=== PATIENT | male | born 1960 | race Caucasian/White ===

== ENCOUNTER 2024-03-01 06:33 | Inpatient (IN) ==
[~2024-03-01 06:33] MED LIST: SUPRANE ONE
[2024-03-01] MEDS: LR 1,000 ML IV 1,000 ML IV ONE (06:46)
[2024-03-01] MEDS: NOZIN NASAL SANITIZER TP ONE (06:58)
[2024-03-01] MEDS: DUONEB 0.5 MG/3 MG (3 mL) NEB ONE (07:07)
--- NOTE | 2024-03-01 07:09 | EKG ---
Test Reason : pre op surgery Blood Pressure : */* mmHG Vent. Rate : 66 BPM Atrial Rate : 66 BPM P-R Int : 200 ms QRS Dur : 120 ms QT Int : 414 ms P-R-T Axes : 70 1 67 degrees QTc Int : 434 ms Normal sinus rhythm Indeterminate axis Low voltage QRS Right bundle branch block Abnormal ECG No previous ECGs available Confirmed by Jacques Cat MD ([id number]) on 03/01/2024 7:26:28 AM Referred By: Confirmed By: Jacques Cat MD
[2024-03-01 07:30] VITALS: BMI 21.4
[2024-03-01] MEDS: NS 500 ML IV 500 ML IV ONE (07:45)
[2024-03-01 07:48] LABS: ALANINE AMINOTRANSFERASE 29 Units/L (12-78); ALBUMIN 3.7 g/dL (3.4-5.0); ALKALINE PHOSPHATASE 92 Units/L (46-116); ASPARTATE AMINO TRANSFERASE 59 Units/L (15-37); BLOOD UREA NITROGEN 9 mg/dL (7-18); CALCIUM 9.3 mg/dL (8.5-10.1); CARBON DIOXIDE 28.7 mmol/L (21-32); CHLORIDE 90 mmol/L (98-107); CREATININE 0.95 mg/dL (0.70-1.30); GLUCOSE 89 mg/dL (65-99); POTASSIUM 4.4 mmol/L (3.5-5.1); SODIUM 128 mmol/L (136-145); TOTAL PROTEIN 7.7 g/dL (6.4-8.2); eGFR NON BLACK RACES > 60 (>60)
--- NOTE | 2024-03-01 07:48 | RAD ---
EXAM: Portable chest HISTORY: Preop abdominal aortic aneurysm repair COMPARISON: None FINDINGS: Heart size is normal. Renetta are normal. Aorta is calcified. Lungs are well inflated and free of a cute alveolar infiltrates. There are likely some emphysematous changes present in the upper lobes. No pleural effusions are identified. Bony thorax is unremarkable. IMPRESSION: No acute infiltrates Emphysematous changes in the upper lobes bilaterally THIS IS AN ELECTRONICALLY VERIFIED FINAL REPORT 03/01/2024 7:44 AM - Electronically signed by Topher Weaver MD
[2024-03-01 07:52] LABS: BASOPHILS # (AUTO) 0.1 X10^3/uL (0.0-0.1); BASOPHILS % (AUTO) 1.1 % (0.2-1.0); EOSINOPHILS # (AUTO) 0.1 x10^3/uL (0.0-0.2); EOSINOPHILS % (AUTO) 1.9 % (0.9-2.9); HEMATOCRIT 40.6 % (42.0-54.0); HEMOGLOBIN 14.2 g/dL (13.5-18.0); LYMPHOCYTES # (AUTO) 1.2 X10^3/uL (1.3-2.9); LYMPHOCYTES % (AUTO) 19.2 % (21.0-51.0); MEAN CORPUSCULAR HEMOGLOBIN 36.2 pg (27.0-34.0); MEAN CORPUSCULAR VOLUME 103.6 fL (80.0-100.0); MEAN PLATELET VOLUME 8.8 fL (7.4-11.0); MONOCYTES # (AUTO) 0.4 x10^3/uL (0.3-0.8); NEUTROPHILS # (AUTO) 4.3 x10^3/uL (2.2-4.8); NEUTROPHILS % (AUTO) 70.8 % (42.0-75.0); PLATELET COUNT 147 X10^3/uL (150.0-450.0); RED BLOOD COUNT 3.92 X10^6/uL (4.7-6.0); RED CELL DISTRIBUTION WIDTH 14.2 % (11.6-16.5)
[2024-03-01] MEDS: FENTANYL VIAL INJ 100 mcg ONE ×2 (08:02→09:57)
[2024-03-01] MEDS: ZEMURON 100 MG VIAL ONE (08:02)
[2024-03-01] MEDS: DIPRIVAN VIAL 20 ML ONE (08:02)
[2024-03-01] MEDS: NS 1,000 ML IV 1,000 ML ONE (08:02)
[2024-03-01] MEDS: PRECEDEX INJ VIAL ONE (08:02)
[2024-03-01] MEDS: NS 100 ML IV 100 ML ONE (08:02)
[2024-03-01] MEDS: VERSED ONE (08:02)
[2024-03-01] MEDS: QUELICIN (OR ANECTINE) ONE (08:02)
[2024-03-01] MEDS: ANCEF VIAL 1 GRAM ONE (08:02)
[2024-03-01] MEDS: KETAMINE HCL ONE (08:04)
[2024-03-01] MEDS: NEO-SYNEPHRINE INJ ONE (08:20)
[2024-03-01] MEDS: MARCAINE 0.5% ONE (08:29)
[2024-03-01] MEDS: VISIPAQUE 100 ML ONE (08:29)
[2024-03-01] MEDS: HEPARIN SODIUM IN D5W 75,000 UNITS/1,500 ML BAG ONE (08:29)
[2024-03-01] MEDS: HEPARIN SODIUM INJ 5000 UNITS ONE (08:58)
[2024-03-01] MEDS: PROTAMINE SULFATE 50 MG VIAL ONE (09:54)
[2024-03-01] MEDS: BRIDION ONE (10:00)
[2024-03-01] MEDS ORDERED: REGLAN INJ 10 MG VIAL IVP PRN (10:27)
[2024-03-01] MEDS ORDERED: BENADRYL INJ 50 MG VIAL IVP PRN (10:27)
[2024-03-01] MEDS ORDERED: DILAUDID INJ IVP PRN ×2 (10:27→14:10)
[2024-03-01] MEDS ORDERED: ZOFRAN INJ 4 MG VIAL IVP PRN (10:27)
[2024-03-01] MEDS ORDERED: BARHEMSYS INJ IVP PRN (10:27)
--- NOTE | 2024-03-01 10:29 | OR.IMMED ---
IMMEDIATE POST-OP NOTE Immediate Post-Op Note Date of surgery/procedure: 03/01/24 Pre-Op Diagnosis: 5.8 cm infrarenal abdominal aortic aneurysm and bilateral iliac artery aneurysms Post-Op Diagnosis: same Procedure: into vascular aortic aneurysm repair and repair bilateral iliac artery aneurysms Description of Procedure: see dictation Surgeon/Cad Specialist: Mario Findings: as above Estimated Blood Loss: 100 cc Complications: none Progress Notes: to PACU then CCU
[2024-03-01] MEDS: NICOTINE PATCH TD SCH (13:00)
[2024-03-01] MEDS: FLOMAX PO SCH (13:30)
[2024-03-01] MEDS: PERCOCET TAB 5/325 MG PO PRN (13:33)
[2024-03-01] MEDS: LR 1,000 ML IV 1,000 ML IV SCH (13:43)
[2024-03-01] MEDS: ZOFRAN INJ 4 MG VIAL IVP PRN (17:47)
[2024-03-01] MEDS: CHECK PATCH XX SCH (21:07)
[2024-03-01] MEDS: LOPRESSOR TAB 25 MG PO SCH (21:08)
[2024-03-02 04:09] VITALS: TEMP 98.4
[2024-03-02 05:01] LABS: BASOPHILS % (AUTO) 0.3 % (0.2-1.0); EOSINOPHILS % (AUTO) 0.7 % (0.9-2.9); HEMATOCRIT 29.5 % (42.0-54.0); LYMPHOCYTES # (AUTO) 0.5 X10^3/uL (1.3-2.9); MEAN CORPUSCULAR HEMOGLOBIN 36.2 pg (27.0-34.0); MEAN CORPUSCULAR HGB CONC 34.9 g/dL (33.0-35.0); MEAN CORPUSCULAR VOLUME 103.7 fL (80.0-100.0); MEAN PLATELET VOLUME 8.6 fL (7.4-11.0); MONOCYTES # (AUTO) 0.3 x10^3/uL (0.3-0.8); MONOCYTES % (AUTO) 6.6 % (0.0-13.0); NEUTROPHILS # (AUTO) 3.5 x10^3/uL (2.2-4.8); NEUTROPHILS % (AUTO) 80.4 % (42.0-75.0); PLATELET COUNT 74 X10^3/uL (150.0-450.0); RED BLOOD COUNT 2.85 X10^6/uL (4.7-6.0); RED CELL DISTRIBUTION WIDTH 14.4 % (11.6-16.5); WHITE BLOOD COUNT 4.3 X10^3/uL (3.6-10.0)
[2024-03-02 05:02] LABS: BLOOD UREA NITROGEN 9 mg/dL (7-18); CALCIUM 7.9 mg/dL (8.5-10.1); CARBON DIOXIDE 30.8 mmol/L (21-32); CHLORIDE 93 mmol/L (98-107); COR NA(FOR HYPERGLY) 128 mmol/L (136-145); CREATININE 0.73 mg/dL (0.70-1.30); GLUCOSE 111 mg/dL (65-99); SODIUM 128 mmol/L (136-145); eGFR NON BLACK RACES > 60 (>60)
[2024-03-02 05:15] LABS: HEMOGLOBIN 10.3 g/dL (13.5-18.0)
[2024-03-02] MEDS: ASPIRIN EC 81 MG PO SCH (08:46)
[2024-03-02] MEDS: ZESTRIL TAB 20 MG PO SCH (08:46)
[2024-03-02] MEDS: LIPITOR TAB 40 MG PO SCH (08:47)
[2024-03-02] MEDS: ZESTRIL TAB 20 MG ONE (09:14)
--- NOTE | 2024-03-02 11:49 | W.DIS.FURT ---
Summary of Discharge Discharge Summary of Date Date of Exam: 03/02/24 Admission Date Date of Admission: 03/01/24 Admission Diagnosis Hospital Course: 64 year old male with 5.8 cm infrarenal abdominal aortic aneurysm and bilateral common iliac artery aneurysms who had been cleared by Cardiology and underwent elective endovascular aortic aneurysm repair and repair of both iliac arteries yesterday. He has done well. Has palpable distal pulses in both feet. Incision in each groin are stable and clear. He is tolerating a diet. He will be discharged home today on his usual medications and also will be given prescription for Percocet 5 milligram tablets, 1 every 6 hours PRN pain. He will follow with me in 1 week. Vital Signs: Vital Signs (72 hours) 03/01/24 07:34 03/01/24 07:37 03/01/24 10:20 Temperature 97.9 F 97 F L Pulse Rate 67 89 Pulse Rate [Bilateral Radial] Respiratory Rate 18 16 Blood Pressure 140/76 93/60 Blood Pressure [Right Arm] O2 Sat by Pulse Oximetry 97 100 Oxygen Delivery Method Room Air Room Air Aerosol Face Tent Oxygen Flow Rate FIO2% 03/01/24 10:25 03/01/24 10:30 03/01/24 10:35 Temperature Pulse Rate 86 85 80 Pulse Rate [Bilateral Radial] Respiratory Rate 16 18 18 Blood Pressure 99/54 94/54 96/59 Blood Pressure [Right Arm] O2 Sat by Pulse Oximetry 100 95 93 L Oxygen Delivery Method Aerosol Face Tent Room Air Nasal Cannula Oxygen Flow Rate FIO2% 03/01/24 10:40 03/01/24 10:45 03/01/24 10:50 Temperature Pulse Rate 74 71 71 Pulse Rate [Bilateral Radial] Respiratory Rate 18 18 18 Blood Pressure 96/60 96/61 102/63 Blood Pressure [Right Arm] O2 Sat by Pulse Oximetry 94 L 94 L 94 L Oxygen Delivery Method Nasal Cannula Nasal Cannula Nasal Cannula Oxygen Flow Rate FIO2% 03/01/24 11:00 03/01/24 11:15 03/01/24 11:30 Temperature 97.6 F 97.6 F 97.6 F Pulse Rate Pulse Rate [Bilateral Radial] 70 71 71 Respiratory Rate 18 16 16 Blood Pressure Blood Pressure [Right Arm] 121/67 106/58 109/63 O2 Sat by Pulse Oximetry Oxygen Delivery Method Oxygen Flow Rate FIO2% 03/01/24 11:45 03/01/24 12:00 03/01/24 13:33 Temperature 97.6 F 97.4 F L Pulse Rate Pulse Rate [Bilateral Radial] 71 70 Respiratory Rate 21 20 20 Blood Pressure Blood Pressure [Right Arm] 132/75 106/66 O2 Sat by Pulse Oximetry Oxygen Delivery Method Oxygen Flow Rate FIO2% 03/01/24 13:00 03/01/24 14:00 03/01/24 11:00 Temperature 97.4 F L 97.4 F L 97.6 F Pulse Rate Pulse Rate [Bilateral Radial] 76 85 70 Respiratory Rate 24 21 18 Blood Pressure Blood Pressure [Right Arm] 154/72 117/67 121/67 O2 Sat by Pulse Oximetry 95 Oxygen Delivery Method Nasal Cannula Oxygen Flow Rate FIO2% 03/01/24 12:00 03/01/24 13:00 03/01/24 14:00 Temperature 97.6 F 97.4 F L 97.4 F L Pulse Rate Pulse Rate [Bilateral Radial] 69 76 83 Respiratory Rate 20 20 21 Blood Pressure Blood Pressure [Right Arm] 106/66 154/72 117/67 O2 Sat by Pulse Oximetry 97 100 98 Oxygen Delivery Method Nasal Cannula Nasal Cannula Nasal Cannula Oxygen Flow Rate FIO2% 03/01/24 15:00 03/01/24 16:00 03/01/24 15:00 Temperature 98.0 F 98.0 F 98.0 F Pulse Rate 79 Pulse Rate [Bilateral Radial] 79 82 Respiratory Rate 12 15 15 Blood Pressure 140/73 Blood Pressure [Right Arm] 115/63 140/73 O2 Sat by Pulse Oximetry 97 99 99 Oxygen Delivery Method Nasal Cannula Nasal Cannula Oxygen Flow Rate FIO2% 03/01/24 16:00 03/01/24 11:10 03/01/24 11:15 Temperature 98.0 F Pulse Rate 82 72 Pulse Rate [Bilateral Radial] Respiratory Rate 15 16 Blood Pressure 140/73 106/58 Blood Pressure [Right Arm] O2 Sat by Pulse Oximetry 99 95 Oxygen Delivery Method Oxygen Flow Rate FIO2% 03/01/24 11:15 03/01/24 11:30 03/01/24 11:30 Temperature Pulse Rate 71 Pulse Rate [Bilateral Radial] Respiratory Rate 16 Blood Pressure 109/63 109/63 Blood Pressure [Right Arm] O2 Sat by Pulse Oximetry 95 Oxygen Delivery Method Oxygen Flow Rate FIO2% 03/01/24 11:30 03/01/24 11:30 03/01/24 11:45 Temperature Pulse Rate 72 70 Pulse Rate [Bilateral Radial] Respiratory Rate 16 21 Blood Pressure 109/63 Blood Pressure [Right Arm] O2 Sat by Pulse Oximetry 95 97 Oxygen Delivery Method Oxygen Flow Rate FIO2% 03/01/24 11:45 03/01/24 12:00 03/01/24 12:00 Temperature Pulse Rate 69 Pulse Rate [Bilateral Radial] Respiratory Rate 20 Blood Pressure 132/75 106/66 Blood Pressure [Right Arm] O2 Sat by Pulse Oximetry 97 Oxygen Delivery Method Oxygen Flow Rate FIO2% 03/01/24 12:15 03/01/24 12:26 03/01/24 12:26 Temperature Pulse Rate 68 74 Pulse Rate [Bilateral Radial] Respiratory Rate 14 16 Blood Pressure 114/63 Blood Pressure [Right Arm] O2 Sat by Pulse Oximetry 98 99 Oxygen Delivery Method Oxygen Flow Rate FIO2% 03/01/24 12:26 03/01/24 12:30 03/01/24 12:30 Temperature Pulse Rate 68 Pulse Rate [Bilateral Radial] Respiratory Rate 15 Blood Pressure 114/63 126/68 Blood Pressure [Right Arm] O2 Sat by Pulse Oximetry 100 Oxygen Delivery Method Oxygen Flow Rate FIO2% 03/01/24 12:30 03/01/24 12:45 03/01/24 13:00 Temperature Pulse Rate 71 80 Pulse Rate [Bilateral Radial] Respiratory Rate 26 H 31 H Blood Pressure 126/68 Blood Pressure [Right Arm] O2 Sat by Pulse Oximetry 99 100 Oxygen Delivery Method Oxygen Flow Rate FIO2% 03/01/24 13:01 03/01/24 13:01 03/01/24 13:15 Temperature Pulse Rate 76 78 Pulse Rate [Bilateral Radial] Respiratory Rate 24 7 L Blood Pressure 154/72 Blood Pressure [Right Arm] O2 Sat by Pulse Oximetry 100 99 Oxygen Delivery Method Oxygen Flow Rate FIO2% 03/01/24 13:30 03/01/24 13:30 03/01/24 13:30 Temperature Pulse Rate 73 Pulse Rate [Bilateral Radial] Respiratory Rate 18 Blood Pressure 144/73 144/73 Blood Pressure [Right Arm] O2 Sat by Pulse Oximetry 100 Oxygen Delivery Method Oxygen Flow Rate FIO2% 03/01/24 13:30 03/01/24 13:45 03/01/24 13:00 Temperature Pulse Rate 82 82 Pulse Rate [Bilateral Radial] Respiratory Rate 28 H 20 Blood Pressure 144/73 144/73 Blood Pressure [Right Arm] O2 Sat by Pulse Oximetry 99 99 Oxygen Delivery Method Nasal Cannula Oxygen Flow Rate 3 FIO2% 03/01/24 12:37 03/01/24 14:00 03/01/24 14:00 Temperature Pulse Rate Pulse Rate [Bilateral Radial] Respiratory Rate Blood Pressure 117/67 117/67 Blood Pressure [Right Arm] O2 Sat by Pulse Oximetry Oxygen Delivery Method Nasal Cannula Oxygen Flow Rate 3 FIO2% 32 03/01/24 14:00 03/01/24 17:00 03/01/24 14:15 Temperature 98.0 F Pulse Rate 83 79 Pulse Rate [Bilateral Radial] 91 H Respiratory Rate 21 21 14 Blood Pressure Blood Pressure [Right Arm] 136/75 O2 Sat by Pulse Oximetry 98 96 98 Oxygen Delivery Method Nasal Cannula Oxygen Flow Rate FIO2% 03/01/24 14:30 03/01/24 14:30 03/01/24 14:30 Temperature Pulse Rate 77 Pulse Rate [Bilateral Radial] Respiratory Rate 13 Blood Pressure 122/68 122/68 Blood Pressure [Right Arm] O2 Sat by Pulse Oximetry 99 Oxygen Delivery Method Oxygen Flow Rate FIO2% 03/01/24 14:45 03/01/24 15:00 03/01/24 15:00 Temperature Pulse Rate 88 79 Pulse Rate [Bilateral Radial] Respiratory Rate 31 H 12 Blood Pressure 115/63 Blood Pressure [Right Arm] O2 Sat by Pulse Oximetry 98 97 Oxygen Delivery Method Oxygen Flow Rate FIO2% 03/01/24 15:15 03/01/24 15:30 03/01/24 15:30 Temperature Pulse Rate 79 79 Pulse Rate [Bilateral Radial] Respiratory Rate 14 14 Blood Pressure 125/69 Blood Pressure [Right Arm] O2 Sat by Pulse Oximetry 97 97 Oxygen Delivery Method Oxygen Flow Rate FIO2% 03/01/24 15:45 03/01/24 16:00 03/01/24 16:00 Temperature Pulse Rate 87 79 Pulse Rate [Bilateral Radial] Respiratory Rate 14 15 Blood Pressure 140/73 Blood Pressure [Right Arm] O2 Sat by Pulse Oximetry 98 99 Oxygen Delivery Method Oxygen Flow Rate FIO2% 03/01/24 16:15 03/01/24 16:30 03/01/24 16:30 Temperature Pulse Rate 84 82 Pulse Rate [Bilateral Radial] Respiratory Rate 21 7 L Blood Pressure 101/55 Blood Pressure [Right Arm] O2 Sat by Pulse Oximetry 97 95 Oxygen Delivery Method Oxygen Flow Rate FIO2% 03/01/24 16:45 03/01/24 17:00 03/01/24 17:00 Temperature Pulse Rate 86 91 H Pulse Rate [Bilateral Radial] Respiratory Rate 17 17 Blood Pressure 138/75 Blood Pressure [Right Arm] O2 Sat by Pulse Oximetry 96 96 Oxygen Delivery Method Oxygen Flow Rate FIO2% 03/01/24 17:15 03/01/24 17:30 03/01/24 17:30 Temperature Pulse Rate 106 H 119 H Pulse Rate [Bilateral Radial] Respiratory Rate 19 23 Blood Pressure 139/103 Blood Pressure [Right Arm] O2 Sat by Pulse Oximetry 97 97 Oxygen Delivery Method Oxygen Flow Rate FIO2% 03/01/24 17:52 03/01/24 18:00 03/01/24 19:00 Temperature 98.0 F 98.0 F Pulse Rate Pulse Rate [Bilateral Radial] 90 91 H Respiratory Rate 20 21 26 H Blood Pressure Blood Pressure [Right Arm] 128/67 O2 Sat by Pulse Oximetry 96 95 Oxygen Delivery Method Nasal Cannula Nasal Cannula Oxygen Flow Rate FIO2% 03/01/24 19:00 03/01/24 18:52 03/01/24 20:00 Temperature 98.0 F Pulse Rate 91 H 93 H Pulse Rate [Bilateral Radial] Respiratory Rate 26 H 20 24 Blood Pressure 128/67 125/67 Blood Pressure [Right Arm] O2 Sat by Pulse Oximetry 95 94 L Oxygen Delivery Method Nasal Cannula Oxygen Flow Rate 2 FIO2% 03/01/24 19:00 03/01/24 21:00 03/01/24 22:00 Temperature Pulse Rate 83 86 Pulse Rate [Bilateral Radial] Respiratory Rate 20 16 Blood Pressure 110/59 124/72 Blood Pressure [Right Arm] O2 Sat by Pulse Oximetry 95 100 Oxygen Delivery Method Room Air Nasal Cannula Nasal Cannula Oxygen Flow Rate 2 2 FIO2% 03/01/24 22:34 03/01/24 23:00 03/02/24 00:00 Temperature 98.0 F Pulse Rate 95 H 79 Pulse Rate [Bilateral Radial] Respiratory Rate 18 12 Blood Pressure 86/51 98/56 Blood Pressure [Right Arm] O2 Sat by Pulse Oximetry 100 98 Oxygen Delivery Method Nasal Cannula Nasal Cannula Nasal Cannula Oxygen Flow Rate 3 2 2 FIO2% 32 03/02/24 01:00 03/02/24 02:00 03/02/24 03:18 Temperature Pulse Rate 80 82 Pulse Rate [Bilateral Radial] Respiratory Rate 16 14 18 Blood Pressure 104/56 96/55 Blood Pressure [Right Arm] O2 Sat by Pulse Oximetry 100 96 Oxygen Delivery Method Nasal Cannula Nasal Cannula Oxygen Flow Rate 2 2 FIO2% 03/02/24 03:00 03/02/24 04:00 03/02/24 04:18 Temperature 98.4 F Pulse Rate 85 90 Pulse Rate [Bilateral Radial] Respiratory Rate 14 14 16 Blood Pressure 132/65 110/58 Blood Pressure [Right Arm] O2 Sat by Pulse Oximetry 98 98 Oxygen Delivery Method Nasal Cannula Nasal Cannula Oxygen Flow Rate 2 2 FIO2% 03/02/24 05:00 03/02/24 06:00 03/02/24 07:00 Temperature Pulse Rate 95 H 90 94 H Pulse Rate [Bilateral Radial] Respiratory Rate 19 18 16 Blood Pressure 105/58 93/58 101/64 Blood Pressure [Right Arm] O2 Sat by Pulse Oximetry 99 98 98 Oxygen Delivery Method Nasal Cannula Nasal Cannula Nasal Cannula Oxygen Flow Rate 2 2 2 FIO2% 03/02/24 08:00 03/02/24 08:49 03/02/24 09:00 Temperature Pulse Rate 105 H 100 H Pulse Rate [Bilateral Radial] Respiratory Rate 16 14 Blood Pressure 134/74 95/54 Blood Pressure [Right Arm] O2 Sat by Pulse Oximetry 96 97 Oxygen Delivery Method Nasal Cannula Nasal Cannula Nasal Cannula Oxygen Flow Rate 2 3 2 FIO2% 32 03/02/24 07:00 03/02/24 10:00 03/02/24 11:00 Temperature Pulse Rate 88 80 Pulse Rate [Bilateral Radial] Respiratory Rate 16 14 Blood Pressure 116/62 127/70 Blood Pressure [Right Arm] O2 Sat by Pulse Oximetry 96 99 Oxygen Delivery Method Nasal Cannula Nasal Cannula Nasal Cannula Oxygen Flow Rate 2 2 2 FIO2% Labs: Laboratory Last Values WBC 4.3 X10^3/uL (3.6-10.0) 03/02/24 04:03 RBC 2.85 X10^6/uL (4.7-6.0) L 03/02/24 04:03 Hgb 10.3 g/dL (13.5-18.0) L D 03/02/24 04:03 Hct 29.5 % (42.0-54.0) L 03/02/24 04:03 MCV 103.7 fL (80.0-100.0) H 03/02/24 04:03 MCH 36.2 pg (27.0-34.0) H 03/02/24 04:03 MCHC 34.9 g/dL (33.0-35.0) 03/02/24 04:03 RDW 14.4 % (11.6-16.5) 03/02/24 04:03 Plt Count 74 X10^3/uL (150.0-450.0) L 03/02/24 04:03 MPV 8.6 fL (7.4-11.0) 03/02/24 04:03 Neut % (Auto) 80.4 % (42.0-75.0) H 03/02/24 04:03 Lymph % (Auto) 12.0 % (21.0-51.0) L 03/02/24 04:03 [place] % (Auto) 6.6 % (0.0-13.0) 03/02/24 04:03 Eos % (Auto) 0.7 % (0.9-2.9) L 03/02/24 04:03 Baso % (Auto) 0.3 % (0.2-1.0) 03/02/24 04:03 Neut # (Auto) 3.5 x10^3/uL (2.2-4.8) 03/02/24 04:03 Lymph # (Auto) 0.5 X10^3/uL (1.3-2.9) L 03/02/24 04:03 [place] # (Auto) 0.3 x10^3/uL (0.3-0.8) 03/02/24 04:03 Eos # (Auto) 0.0 x10^3/uL (0.0-0.2) 03/02/24 04:03 Baso # (Auto) 0.0 X10^3/uL (0.0-0.1) 03/02/24 04:03 Absolute Nucleated RBC 0.2 /100WBC 03/02/24 04:03 Sodium 128 mmol/L (136-145) L 03/02/24 04:03 Corrected Sodium 128 mmol/L (136-145) L 03/02/24 04:03 Potassium 4.0 mmol/L (3.5-5.1) 03/02/24 04:03 Chloride 93 mmol/L (98-107) L 03/02/24 04:03 Carbon Dioxide 30.8 mmol/L (21-32) 03/02/24 04:03 BUN 9 mg/dL (7-18) 03/02/24 04:03 Creatinine 0.73 mg/dL (0.70-1.30) 03/02/24 04:03 Est GFR (MDRD) Af Amer > 60 (>60) 03/02/24 04:03 Est GFR (MDRD) Non-Af > 60 (>60) 03/02/24 04:03 Glucose 111 mg/dL (65-99) H 03/02/24 04:03 Calcium 7.9 mg/dL (8.5-10.1) L 03/02/24 04:03 Corrected Calcium TNP 03/01/24 07:22 Total Bilirubin 1.40 mg/dL (0.2-1.0) H 03/01/24 07:22 AST 59 Units/L (15-37) H 03/01/24 07:22 ALT 29 Units/L (12-78) 03/01/24 07:22 Alkaline Phosphatase 92 Units/L (46-116) 03/01/24 07:22 Total Protein 7.7 g/dL (6.4-8.2) 03/01/24 07:22 Albumin 3.7 g/dL (3.4-5.0) 03/01/24 07:22 Globulin 4.0 g/dL (2.5-4.5) 03/01/24 07:22 Albumin/Globulin Ratio 0.9 Ratio (1.1-2.1) L 03/01/24 07:22 Blood Type A POSITIVE 03/01/24 07:22 Antibody Screen Negative 03/01/24 07:12 Reason For Visit: ABDOMINAL AORTIC ANEURYSM Discharge Date Discharge Date: 03/02/24 Discharge Diagnosis All Active Problems (Updated 03/02/24 @ 11:32 by Oscar Martin) Abdominal aortic aneurysm, without rupture, unspecified (Acute) Plan of Treatment: Continue with present treatment and follow up plan. Pt is to keep follow up appointment as instructed and take medications as ordered. Discharge Medications Discharge Medications: No Known Allergies Allergy (Verified 03/01/24 06:50) CONTINUE taking the following medications aspirin 81 mg capsule 81 mg PO QDAY 03/01/24 [History] atorvastatin 40 mg tablet 40 mg PO QDAY 03/01/24 [History] lisinopril 20 mg tablet 20 mg PO QDAY 03/01/24 [History] metoprolol tartrate 25 mg tablet 25 mg PO BID 03/01/24 [History] New Percocet 5mg, 1 po q 6hr PRN pain, #30 Discharge Disposition Assessment: see hospital course Discharge Plan Discharge Plan Hospital Course: 64 year old male with 5.8 cm infrarenal abdominal aortic aneurysm and bilateral common iliac artery aneurysms who had been cleared by Cardiology and underwent elective endovascular aortic aneurysm repair and repair of both iliac arteries yesterday. He has done well. Has palpable distal pulses in both feet. Incision in each groin are stable and clear. He is tolerating a diet. He will be discharged home today on his usual medications and also will be given prescription for Percocet 5 milligram tablets, 1 every 6 hours PRN pain. He will follow with me in 1 week. Patient Disposition: HOME, SELF-CARE Condition: Stable Health Concerns: Post Hospitalization: new medications and changes needed to prevent readmission or further decline. Pt educated and given instructions on all concerns. Care Plan Goals: Problem: Pain/Alteration in Comfort Goal: Improve/ Resolve Pain; Achieve Pain Tolerance Instructions: Take pain medications as prescribed. Contact your primary care provider if your pain is unrelieved or worsens. Follow up with primary care provider as directed. Plan of Treatment: Continue with present treatment and follow up plan. Pt is to keep follow up appointment as instructed and take medications as ordered. Assessment: see hospital course Prescription drug monitoring program results: PDMP reviewed and no concerns identified Prescriptions: New oxycodone-acetaminophen [Percocet] 5-325 mg tablet 1 tab PO Q6H MDD 4 PRNQty: 30 0RF Continued atorvastatin 40 mg tablet 40 mg PO QDAY lisinopril 20 mg tablet 20 mg PO QDAY metoprolol tartrate 25 mg tablet 25 mg PO BID aspirin 81 mg Capsule 81 mg PO QDAY Follow ups/Referrals Follow ups/Referrals: Oscar Martin [STAFF PHYSICIAN] - 03/09/24 3:00 pm Instructions Instructions: Steps to Quit Smoking, [id number], Abdominal Aortic Aneurysm Endograft Repair, Care After, Abdominal Aortic Aneurysm, Tobacco Use Disorder, Preventing Problems After Surgery Activity Restrictions/Additional Instructions: Keep operative site clean and dry. Apply light dresing daily as needed. Shower only. Monitor for signs of infection and notify Dr. Martin with any concerns you have. Take medications as directed. Monitor blood pressure. Eat healthy diet. No lifting or straining. Rest and increase daily activity as tolerated. Avoid over exertion and outside heat. Stand Alone Forms: Post Hospital Follow Up Care
[2024-03-02 12:11] VITALS: BP 125/74; PULSE 84; RESP 17; O2SAT 97
--- NOTE | 2024-03-05 13:32 | DR.OPNOTE ---
OP NOTE Pre-Op Diagnosis: 5.8 cm abdominal aortic aneurysm, b/l significant iliac artery aneurysms Post-Op Diagnosis: Endovascular repair of aneuryms as above Procedure Date Date Of Procedure: 03/01/24 Procedure: PROCEDURE: BILATERAL FEMORAL ARTERY CUTDOWN , ENDOVASCULAR REPAIR OF AAA WITH BIFURCATED GRAFT, ONE EXTENSION ON RIGHT AN 2 ON LEFT TO COVER THE ILIAC ARTERY ANEURYSMS. NARRATIVE : The patient was taken to the operative suite and placed in the supine position. General anesthesia induced. The entire abdomen and both groins were prepped and draped in sterile fashion. Time out for the procedure obtained. Vertical incisions were made in each groin and sharp dissection carried out the placing placing vessels loops around the common femoral artery , the superficial femoral arterey and profunda femoris artery on each side . Purstring sutures of 5-0 Prolene placed in each common femoral artery. Patient was given 5,000 of Heparin and on each side and needles sticks were performed through the purse strings and 0.035 inch Advantage wire placed on the left and a 0.035 Amplatz wire placed on the right. Omni catheter placed over the Advantage wire on the left and aortogram carried out showing the renal arteries and a good neck of the aneurysm, aneurysm itself and the bilateral iliac arteries including their aneurysms. The Advantage wire on the left side exchanged for an Amplatz wire and over this we placed the main body of the graft and positioned it just below the renal arteries. The graft was opened and secured at the neck of the aneurysm. From the right side a catheter was used to place a wire through the gate of the right iliac artery opening and the wire went up through the aortic graft we placed the Omnic catheter over it and were able to twirl it in the aorta indicating that we were not outside the graft itself. The wire also was able to enter the left renal artery above consistent with no obstruction of the renal arteries. The right iliac artery graft was positioned and deployed. It took two grafts on the left to cover the left iliac artery aneurysm. The right internal iliac artery was covered. Graft delivery devices removed each side and 12 Fr shearth placed on the left over the wire and 16 Fr sheath placed on the right over the wire . All portions of the graft then balloon dilated and aorotgram sjhowed excellent placement of the grafts with no evidence of endoleak. Each sheath removed and the pursestring sutures tied into place with no bleeding. Each groin incision then irrigated and closed in two layers with running 3-0 Vicryl and the skin of each groin incision closed with skin ramana. Patient extubated and taken to PACU and then on the CCU. Type of Anesthesia: General Anesthetic w/ETT Findings: as above Type of Fluids Used:: Lactated Ringers Total Amount of Fluid Infused:: 1700 cc EBL: 100 cc Hardware: Main body aortic stent graft 36x14x 103 , right iliac graft 16x20x 124, left iliac grafts 16x10x 156 and alos on left 16x10x 146 Complications:: none Needle/Sponge Count:: correct Disposition/Condition: Pt. tolerated procedure without difficulty. Extubated in the OR and taken to PACU in stable condition and then on to the CCU after PACU
== END 2024-03-02 12:26 | disposition home or self-care (01) | DRG 271 ==
LOC: ICU 06:33
PROVIDERS: ADMIT Surgery; ATTEND Surgery